=== PATIENT | male | born 1980 | race Caucasian/White ===

== ENCOUNTER → 2021-03-17 13:32 | Outpatient (BNVA) | payer OTHER, SELFPAY | PROVIDERS: Visit Provider Registered Nurse Neonatal Intensive Care | DX: Z20.822 Contact with and (suspected) exposure to COVID-19 (principal) | CPT/HCPCS: 87400; 87635 ==

== ENCOUNTER 2023-10-06 07:49 | Outpatient (CLI) | payer OTHER, SELFPAY ==
--- NOTE | 2023-10-06 08:00 | MR_ITS ---
WS: [id number] MRI CERVICAL SPINE NONCONTRAST TECHNIQUE: Sagittal T1, T2 and STIR imaging. Axial T2, gradient, and fiesta imaging. CLINICAL INFORMATION: M54.2 - Cervicalgia COMPARISON: None. FINDINGS: Straightening of the normal cervical lordosis. Cord signal is normal. No high-grade central canal gabe nosis. C2-C3: Normal. C3-C4: Slight retrolisthesis. Mild disc bulge with endplate ridging. Mild facet arthropathy. Mild LEF T and no significant RIGHT foraminal narrowing. C4-C5: Disc osteophyte complex with endplate ridging. Mild LEFT greater than RIGHT bony foraminal everette rowing. Mild facet arthropathy. Spinal canal is patent. C5-C6: Mild disc osteophyte ridging. Mild RIGHT and no significant LEFT foraminal narrowing. Mild fac et arthropathy. Spinal canal is patent. C6-C7: Mild disc osteophyte ridging. Mild LEFT greater than RIGHT bony foraminal narrowing. Mild face t arthropathy. Spinal canal is patent. ' C7-T1: No significant disc bulging. Spinal canal and foramen are patent. Visualized brain stem structures: Normal. Prevertebral soft tissues: Normal. MR/MR cervical spin wo con* [id number] IMPRESSION: 1. Straightening of the normal cervical lordosis. Cord signal is normal. 2. No significant central canal stenosis. 3. Mild bony foraminal narrowing worse at LEFT C3-4, LEFT C4-5, RIGHT C5-C6, b ilateral C6-7 worse on the LEFT. 4. Minimal disc bulging C3-C6 with slight effacement of the ventral thecal sac .
== END 2023-10-06 07:50 | disposition home or self-care (01) ==
PROVIDERS: PCP Family Medicine; Visit Provider Specialist
DX: R25.3 Fasciculation (principal); M50.31 Other cervical disc degeneration, high cervical region; M47.812 Spondylosis without myelopathy or radiculopathy, cervical region; M48.02 Spinal stenosis, cervical region; M25.78 Osteophyte, vertebrae
CPT/HCPCS: 72141

== ENCOUNTER → 2023-10-22 14:55 | Outpatient (BNVA) | payer OTHER, SELFPAY | PROVIDERS: PCP Family Medicine; Visit Provider Orthopaedic Surgery | DX: M54.2 Cervicalgia (principal) | CPT/HCPCS: 72050; 99204 ==

== ENCOUNTER 2023-11-02 07:36 | Outpatient (RCR) | payer OTHER, SELFPAY | END 2023-11-04 23:59 | disposition home or self-care (01) | LOC: SPT 07:36 | PROVIDERS: Visit Provider Orthopaedic Surgery | DX: M47.22 Other spondylosis with radiculopathy, cervical region (principal) | CPT/HCPCS: 97110; 97161 ==

== ENCOUNTER 2023-11-05 06:00 | Outpatient (RCR) | payer OTHER, SELFPAY | END 2023-12-05 23:59 | disposition home or self-care (01) | LOC: SPT 06:00 | PROVIDERS: Visit Provider Orthopaedic Surgery | DX: M47.22 Other spondylosis with radiculopathy, cervical region (principal) | CPT/HCPCS: 97012; 97110; 97140; G0283 ==

== ENCOUNTER 2023-12-06 06:34 | Outpatient (RCR) | payer OTHER, SELFPAY | END 2023-12-22 23:59 | disposition home or self-care (01) | LOC: SPT 06:34 | PROVIDERS: Visit Provider Orthopaedic Surgery | DX: M47.22 Other spondylosis with radiculopathy, cervical region (principal) | CPT/HCPCS: 97110; G0283 ==

== ENCOUNTER → 2024-01-28 08:20 | Outpatient (BNVA) | payer OTHER, SELFPAY | PROVIDERS: PCP Family Medicine; Visit Provider Podiatrist Foot & Ankle Surgery | DX: M21.621 Bunionette of right foot (principal); M72.2 Plantar fascial fibromatosis; M25.871 Other specified joint disorders, right ankle and foot | CPT/HCPCS: 73630; 99203 ==

== ENCOUNTER → 2024-04-28 10:45 | Outpatient (BNVA) | payer OTHER, SELFPAY | PROVIDERS: PCP Family Medicine; Visit Provider Podiatrist Foot & Ankle Surgery | DX: M21.621 Bunionette of right foot (principal); M72.2 Plantar fascial fibromatosis; M25.871 Other specified joint disorders, right ankle and foot | CPT/HCPCS: 99213 ==

== ENCOUNTER → 2024-12-02 07:50 | Outpatient (BNVA) | payer OTHER, SELFPAY | PROVIDERS: PCP Family Medicine; Visit Provider Orthopaedic Surgery | DX: S69.92XA Unspecified injury of left wrist, hand and finger(s), initial encounter (principal); M79.5 Residual foreign body in soft tissue; X58.XXXA Exposure to other specified factors, initial encounter | CPT/HCPCS: 99204 ==